=== PATIENT | female | born 1985 | race African-American/Black ===

== ENCOUNTER 2016-03-09 15:13 | Emergency (ER) | payer SELFPAY ==
[~2016-03-09] VITALS: Ht 188 cm; Wt 180.9 kg
[~2016-03-09 15:13] MED LIST: PREN1MIS11 PO
[2016-03-09 15:15] VITALS: BP 147/74; PULSE 84; RESP 12; TEMP 98; O2SAT 98
[2016-04-27] MEDS ORDERED: METR-1 PO (11:03)
== END 2016-03-09 15:23 | disposition left against medical advice (07) ==
LOC: NED 15:13
DX: R68.89 Other general symptoms and signs (principal)
CPT/HCPCS: 99281